=== PATIENT | male | born 1980 | race African-American/Black ===

== ENCOUNTER 2017-12-15 02:02 | Emergency (ER) | payer OTHER ==
[2017-12-15 02:12] VITALS: BP 124/74
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
== END 2017-12-15 02:35 | disposition home or self-care (01) ==
DX: S20.229A Contusion of unspecified back wall of thorax, initial encounter (principal); Y04.8XXA Assault by other bodily force, initial encounter; Y92.89 Other specified places as the place of occurrence of the external cause